=== PATIENT | male | born 1970 | race Caucasian/White ===

== ENCOUNTER → 2021-03-18 15:16 | Outpatient (CLI) | payer BC | END | disposition home or self-care (01) | LOC: D.US 15:16 | PROVIDERS: ATTEND Internal Medicine Interventional Cardiology | DX: I65.23 Occlusion and stenosis of bilateral carotid arteries (principal) ==

== ENCOUNTER → 2021-03-23 12:50 | Outpatient (CLI) | payer BC ==
--- NOTE | ~2021-03-23 | EC ---
PATIENT:TORRIE WORKMAN DATE OF SERVICE: 03/23/21 SEX: M MEDICAL RECORD: [id number] DATE OF : [birth year] [facility] AGE [facility] PATIENT: 50 ADMISSION DATE: 03/23/21 REFERRING PHYSICIAN: INTERPRETING PHYSICIAN: RUDDY WADDELL MD ECHOCARDIOGRAM REPORT ECHO CHARGES 4 ECHO COMPLETE Date: 03/23/21 CLINICAL DIAGNOSIS: DYSPNEA ON EXERTION/HEART MURMUR ECHOCARDIOGRAPHIC MEASUREMENTS (adult normal given) AC root (d.<3.7cm) 3.5 cm LV Septum d (<1.2 cm> 1.3 cm Valve Excursion 1.6 cm LV Septum (systole) 1.6 cm Left Atria (s.<4.0cm> 3.6 cm LVPW d(<1.2cm) 1.7 cm RV (d.<2.3cm) 3.9 cm LVPW (sytole) 1.8 cm LV diastole(<5.6CM) 4.1 cm MV E-F(>70mm/sec) cm LV systole 2.8 cm LVOT Diameter 1.9 cm MV exc.(>10mm) 1.6 cm Est.ejection fraction (50-75%) % DOPPLER: LVIT cm/sec A 92.0 cm/sec E 78.0 cm/sec LA cm/sec RVSP 20 mmHg LVOT 106 cm/sec AOP1/2T m/s Asc. Ao 130 cm/sec RVOT 93 cm/sec RA cm/sec PA 120 cm/sec AV Gradient Peak 6.80 mmHg AV Mean 3.47 mmHg AV Area 2.4 cm MV Gradient Peak 3.00 mmHg MV Mean 1.65 mmHg MV Area cm COMMENTS: Radiation Oncologist: 2 BLAYNE ANGUIANO Head Of Commission Department: 3 Dr. Regalado TAPE# PACS Pericardial Effusion N DATE OF SERVICE: Adequate 2D, color-flow imaging, spectral Doppler, and M-Mode FINDINGS: LVH is present. LV internal dimensions are normal. Wall motion is normal. EF is greater than or equal to 55%. Aortic valve is tricuspid. No evidence of stenosis by Doppler interrogation. Left atrium is normal at 3.6 cm. Mitral valve shows no prolapse. Trace MR. Right-sided chambers are grossly normal. Trace TR. ECHOCARDIOGRAM REPORT [id number] TORRIE WORKMAN TRANSINT:[id number] Voice Confirmation ID: [id number] DOCUMENT ID: [id number] RUDDY WADDELL MD CC: [id number] DICTATION DATE: 03/23/21 1510 VOIP NETWORK TECHNICIAN: 03/23/21 1544 [address] [place] [id number] [place] [id number]
--- NOTE | ~2021-03-23 | ST ---
PATIENT:TORRIE WORKMAN MEDICAL RECORD: [id number] SEX: M LOCATION:[facility] ORDER #: ADMISSION DATE: 03/23/21 AGE OF PATIENT: 50 REFERRING PHYSICIAN: INTERPRETING PHYSICIAN: RUDDY WADDELL MD DATE OF SERVICE: 03/23/2021 PROCEDURE: Treadmill stress test. Baseline ECG is normal. Exercised for 6 minutes 30 seconds on Thair protocol. Maximum heart rate 146 beats per minute, greater than 85% max predicted. No ECG changes of ischemia. No symptoms of ischemia. Hypertensive blood pressure response to exercise. No arrhythmias were noted. Fair exercise tolerance for age. IMPRESSION: This is a negative treadmill stress test with fair exercise tolerance. Mild hypertensive response. TRANSINT:[id number] Voice Confirmation ID: [id number] DOCUMENT ID: [id number] RUDDY WADDELL MD CC: [id number] DICTATION DATE: 03/24/211706 CUSTODIAL ENGINEER: 03/24/21 1821 DEP CLI 03/23/21 [facility] [address] [place] [address]
== END | disposition home or self-care (01) ==
LOC: D.HCCECHO 12:50
PROVIDERS: ATTEND Internal Medicine Interventional Cardiology
DX: R06.09 Other forms of dyspnea (principal)